=== PATIENT | female | born 1970 | race Caucasian/White ===

== ENCOUNTER 2016-09-15 12:26 | Emergency (ER) | payer OTHER ==
[~2016-09-15] VITALS: Wt 77.0 kg
[~2016-09-15 12:26] MED LIST: ACET500T98 PO; AUG875 PO; CETI10CA PO; DICY10CA60 PO; IBUP200C PO; OFLO5DRO46 LEFT EYE; ONDA4TAB14 PO; UDROBDM PO
[2016-09-15 14:21] LABS: URINE BLOOD (Dip) POC 3+ (NEGATIVE)
--- NOTE | 2016-09-15 15:37 | RADRPT ---
PROCEDURE: Pelvic ultrasound. CLINICAL INDICATION: Pelvic pain, vaginal bleeding. TECHNIQUE: Fried scale, color doppler, spectral doppler ultrasound of the pelvis was performed with transabdominal and transvaginal transducers. COMPARISON: No prior studies are available for comparison. FINDINGS: Uterus: Position: Mildly retroflexed Normal myometrial echogenicity. Normal appearance of the endometrium. Small Nabothian cysts are present. Secretory phase. Ovaries: Normal sized ovaries with preserved blood flow. No adnexal masses. 3.8 cm dominant follicle of the left ovary. Free fluid: None. Measurements: Endometrium: 1.4 cm Uterus: 9.4 x 4.3 x 4.8 cm Right ovary: 2.4 x 1.3 x 1.5 cm Left ovary: 4.5 x 3.4 x 3.9 cm IMPRESSION: Endometrial thickness upper limits of normal compatible with late secretory phase. Dominant follicle of the left ovary. Otherwise normal examination. RPTAT: PP .Dinh Watson MD, Date Time Electronically viewed and signed by .Dinh Watson MD, on 09/15/2016 15:36 .B/
--- NOTE | 2016-09-15 15:40 | ERD ---
ER Documentation Chief Complaint Date/Time DATE: 09/15/16 TIME: 15:40 Chief Complaint VAG BLEEDING ONSET 9 DAYS AGO WITH REGULAR PERIOD BUT HASNT STOPPED ROS All systems reviewed and are negative except as per history of present illness. Medications Home Meds Active Scripts Dicyclomine Hcl* (Bentyl*) 10 Mg Capsule, 10 MG PO QID, #20 CAP Prov:EDY HAMILTON PA-C 05/13/16 Ondansetron (Ondansetron Odt) 4 Mg Tab.rapdis, 4 MG PO Q6H Y for NAUSEA AND/OR VOMITING, #10 TAB Prov:EDY HAMILTON PA-C 05/13/16 Ofloxacin* (Ocuflox*) 0.3%-5 Ml Ophth Drops, 1 DROP LEFT EYE QID for 7 Days, BOTTLE Prov:SUKH BECKFORD MD 04/27/16 Cetirizine Hcl* (Zyrtec*) 10 Mg Capsule, 10 MG PO DAILY, #15 TAB.CHEW Prov:SUKH BECKFORD MD 04/27/16 Guaifenesin-Dextromethorphan* (Robitussin* DM) 100MG/10MG/5ML Syrup, 5 ML PO Q6H Y for COUGH, #240 ML 0 Refills Prov:CARO INFANTE PA-C 09/28/15 Ibuprofen* (Ibuprofen*) 200 Mg Capsule, 200 MG PO Q6, #30 CAP 0 Refills Prov:CARO INFANTE PA-C 09/28/15 Acetaminophen (Tylenol) 500 Mg Tab, 500 MG PO Q6, #30 TAB 0 Refills Prov:CARO INFANTE PA-C 09/28/15 Amoxicillin-Clavulanate K* (Augmentin*) 875 Mg Tab, 875 MG PO BID, #20 TAB 0 Refills Prov:CARO INFANTE PA-C 09/28/15 Allergies Allergies: Coded Allergies: No Known Allergy (Verified , 08/08/14) PMhx/Soc History of Surgery: No Anesthesia Reaction: No Hx Neurological Disorder: No Hx Respiratory Disorders: No Hx Cardiac Disorders: No Hx Psychiatric Problems: No Hx Miscellaneous Medical Probl: No Hx Alcohol Use: No Hx Substance Use: No Hx Tobacco Use: No Physical Exam Vitals Vital Signs Date Time Temp Pulse Resp B/P Pulse Ox O2 Delivery O2 Flow Rate FiO2 09/15/16 12:32 98.1 82 20 135/81 98 Physical Exam GENERAL: well-developed/well-nourished, in no apparent distress, non-toxic appearing HENT: NC/AT, moist mucous membranes EYES: Conjunctiva normal NECK: Supple, no lymphadenopathy PULM: CTA bilaterally, no rales, rhonchi, or wheezing heard CV: Normal S1S2, RRR, good capillary refill GI: Soft, non-distended, non-tender to palpation Normal bowel sounds, no masses or organomegaly felt on exam No gross peritonitis, no bruits Negative Rovsing, negative [place], negative [place]'s point, Negative CVAT BACK: No masses EXT: No clubbing, cyanosis, or edema NEURO: Alert and Orientated SKIN: Intact, normal turgor PSYCH: Normal mood and mentation Result Diagram: 09/15/16 1550 Results 24 hrs Laboratory Tests Test 09/15/16 14:21 09/15/16 15:50 Bedside Urine Blood 3+ Bedside Urine Glucose (UA) Negative Bedside Urine Ketones (LAB) Negative Bedside Urine Leukocyte Esterase (L Negative Bedside Urine Nitrite (LAB) Negative Bedside Urine Protein (LAB) Negative Bedside Urine pH (LAB) 7.5 Basophils # 0.110^3/ul Basophils % 0.8% Blood Morphology Comment Eosinophils # 0.210^3/ul Eosinophils % 2.8% Hematocrit 38.4% Hemoglobin 12.3g/dl Lymphocytes # 2.510^3/ul Lymphocytes % 30.0% Mean Corpuscular Hemoglobin 26.8pg Mean Corpuscular Hemoglobin Concent 32.1g/dl Mean Corpuscular Volume 83.5fl Mean Platelet Volume 10.5fl Monocytes # 0.610^3/ul Monocytes % 7.0% Neutrophils # 5.010^3/ul Neutrophils % 59.4% Nucleated Red Blood Cells # 0.010^3/ul Nucleated Red Blood Cells % 0.0/100WBC Platelet Count 10607^3/UL Red Blood Count 4.6010^6/ul Red Cell Distribution Width 15.7% White Blood Count 8.510^3/ul PROCEDURE: Pelvic ultrasound. CLINICAL INDICATION: Pelvic pain, vaginal bleeding. TECHNIQUE: Fried scale, color doppler, spectral doppler ultrasound of the pelvis was performed with transabdominal and transvaginal transducers. COMPARISON: No prior studies are available for comparison. FINDINGS: Uterus: Position: Mildly retroflexed Normal myometrial echogenicity. Normal appearance of the endometrium. Small Nabothian cysts are present. Secretory phase. Ovaries: Normal sized ovaries with preserved blood flow. No adnexal masses. 3.8 cm dominant follicle of the left ovary. Free fluid: None. Measurements: Endometrium: 1.4 cm Uterus: 9.4 x 4.3 x 4.8 cm Right ovary: 2.4 x 1.3 x 1.5 cm Left ovary: 4.5 x 3.4 x 3.9 cm IMPRESSION: Endometrial thickness upper limits of normal compatible with late secretory phase. Dominant follicle of the left ovary. Otherwise normal examination. RPTAT: PP .Dinh Watson MD, MD Date Time Electronically viewed and signed by .Dinh Watson MD, MD on 09/15/2016 15:36 .B/ CC: DEEPALI KIM PA-C Procedures/MDM This is a 46-year-old female presenting to the emergency department complaining of heavy vaginal bleeding for the past 11 days, menorrhagia. I have a low suspicion for anemia or fibroids. Patient had no pelvic pain. Lab work was drawn. CBC did not show any evidence of leukocytosis or anemia. Urinalysis did not show any evidence of urinary tract infection. A pelvic ultrasound was done in the ED and radiologist stated- Pelvic ultrasound: Endometrial thickness upper limits of normal compatible with late secretory phase. Dominant follicle of the left ovary. Otherwise normal examination. Patient is suitable to follow-up with an [employer] for further evaluation management. Patient is stable for discharge. Discussed return to the ER for any worsening signs or symptoms. She understands and agrees with plan Departure Diagnosis: Primary Impression: Vaginal bleeding Condition: Stable DEEPALI KIM PA-C Sep 15, 2016 15:40
[2016-09-15 16:32] LABS: BASOPHIL # 0.1 10^3/ul (0.0-0.1); BASOPHILS % 0.8 % (0.0-2.0); EOSINOPHILS # 0.2 10^3/ul (0.0-0.5); EOSINOPHILS % 2.8 % (0.0-7.0); HEMATOCRIT 38.4 % (37.0-47.0); HEMOGLOBIN 12.3 g/dl (12.0-16.0); LYMPHOCYTES # 2.5 10^3/ul (0.8-2.9); MEAN CORPUSCULAR HEMOGLOBIN 26.8 pg (29.0-33.0); MEAN CORPUSCULAR HGB CONC 32.1 g/dl (32.0-37.0); MEAN CORPUSCULAR VOLUME 83.5 fl (82.0-101.0); MEAN PLATELET VOLUME 10.5 fl (7.4-10.4); MONOCYTE # 0.6 10^3/ul (0.3-0.9); NEUTROPHILS % 59.4 % (39.0-77.0); PLATELET COUNT 212 10^3/UL (140-440); RED CELL DISTRIBUTION WIDTH 15.7 % (11.5-14.5); UNCORRECTED WBC 8.5 10^3/ul (4.8-10.8); WHITE BLOOD COUNT 8.5 10^3/ul (4.8-10.8)
[2016-09-15 16:35] LABS: CONDITION 1; LH ANALYZER COMMENTS 1
== END 2016-09-15 17:10 | disposition home or self-care (01) ==
LOC: FTE 12:26
DX: N93.9 Abnormal uterine and vaginal bleeding, unspecified (principal); R10.2 Pelvic and perineal pain
CPT/HCPCS: 76830; 76856; 81003; 85025; 86850; 86900; 86901

== ENCOUNTER 2017-01-27 21:32 | Emergency (ER) | payer MEDICAID, OTHER ==
[~2017-01-27] VITALS: Ht 162.6 cm; Wt 88.0 kg
[2017-01-27 21:39] VITALS: Ht 162.6 cm; Wt 88.0 kg
[2017-01-28] MEDS ORDERED: IBUPROFEN 600 MG TAB PO ONE
--- NOTE | 2017-01-28 00:06 | ERA ---
ER Documentation Chief Complaint Date/Time DATE: 01/28/17 TIME: 00:05 Chief Complaint sore throat/cough/congestion x 4 days HPI This is a pleasant overweight 47-year-old female who is presenting with a chief complaint of sore throat. Symptoms started 1 day ago. Describes the discomfort as worse when she swallows. The patient denies difficulty breathing , chest pain, dysphagia, change in voice, drooling, fatigue, oral swelling, ear pain or meningismus. Patients vaccination status is up to date patient denies any medical conditions including asthma, diabetes mellitus, or COPD. Patient denies smoking or recreational drug abuse. Patient has not had symptoms like this before. ROS All systems reviewed and are negative except as per history of present illness. Medications Home Meds Active Scripts Methylprednisolone* (Medrol* DOSE PACK) 4 Mg/Dose-Pack Tab.ds.pk, 4 MG PO . DIRECTED, #1 PACKET Prov:YAO GARCIA PA-C 01/28/17 Acetaminophen* (Tylenol*) 325 Mg Tablet, 325 MG PO Q4H Y for PAIN AND OR ELEVATED TEMP for 10 Days, TAB Prov:YAO GARCIA PA-C 01/28/17 Amoxicillin* (Amoxicillin*) 500 Mg Cap, 500 MG PO BID, #20 CAP Prov:YAO GARCIA PA-C 01/28/17 Ibuprofen* (Motrin*) 600 Mg Tab, 600 MG PO Q6, #30 TAB Prov:YAO GARCIA PA-C 01/28/17 Dicyclomine Hcl* (Bentyl*) 10 Mg Capsule, 10 MG PO QID, #20 CAP Prov:EDY HAMILTON PA-C 05/13/16 Ondansetron (Ondansetron Odt) 4 Mg Tab.rapdis, 4 MG PO Q6H Y for NAUSEA AND/OR VOMITING, #10 TAB Prov:EDY HAMILTON PA-C 05/13/16 Ofloxacin* (Ocuflox*) 0.3%-5 Ml Ophth Drops, 1 DROP LEFT EYE QID for 7 Days, BOTTLE Prov:SUKH BECKFORD MD 04/27/16 Cetirizine Hcl* (Zyrtec*) 10 Mg Capsule, 10 MG PO DAILY, #15 TAB.CHEW Prov:SUKH BECKFORD MD 04/27/16 Guaifenesin-Dextromethorphan* (Robitussin* DM) 100MG/10MG/5ML Syrup, 5 ML PO Q6H Y for COUGH, #240 ML 0 Refills Prov:CARO INFANTE MELISSA 09/28/15 Ibuprofen* (Ibuprofen*) 200 Mg Capsule, 200 MG PO Q6, #30 CAP 0 Refills Prov:NEIL INFANTETRISHA TORRES 09/28/15 Acetaminophen (Tylenol) 500 Mg Tab, 500 MG PO Q6, #30 TAB 0 Refills Prov:ARELISCARO TORRES 09/28/15 Amoxicillin-Clavulanate K* (Augmentin*) 875 Mg Tab, 875 MG PO BID, #20 TAB 0 Refills Prov:CARO INFANTE MELISSA 09/28/15 Allergies Allergies: Coded Allergies: No Known Allergy (Verified , 01/27/17) PMhx/Soc Medical and Surgical Hx: pt denies Medical Hx, pt denies Surgical Hx History of Surgery: No Anesthesia Reaction: No Hx Neurological Disorder: No Hx Respiratory Disorders: No Hx Cardiac Disorders: No Hx Psychiatric Problems: No Hx Miscellaneous Medical Probl: No Hx Alcohol Use: No Hx Substance Use: No Hx Tobacco Use: No Physical Exam Vitals Vital Signs Date Time Temp Pulse Resp B/P Pulse Ox O2 Delivery O2 Flow Rate FiO2 01/27/17 21:39 99.4 77 20 132/61 98 Physical Exam Const: Well-appearing 47-year-old female in no acute distress Head: Atraumatic Eyes: Normal Conjunctiva ENT: Normal External Ears, Nose and Mouth. Neck: Full range of motion..~ No meningismus. Resp: Clear to auscultation bilaterally Cardio: Regular rate and rhythm, no murmurs Abd: Soft, non tender, non distended. Normal bowel sounds Skin: No petechiae or rashes Back: No midline or flank tenderness Ext: No cyanosis, or edema Neur: Awake and alert Psych: Normal Mood and Affect Const: Healthy-appearing, well-nourished, well-developed, no acute distress. Head: Normocephalic, Atraumatic Eyes: Non-injected; No scleral erythema, discharge or foreign body. EOMI bilaterally. PERRLA. Ears: Normal External Ears, EACs clear, TM normal bilaterally without erythema. Nose: Normal nose without discharge, septal deviation, or sinus tenderness. Throat: Enlarged tonsils bilaterally. No exudates visualized. Moist mucous membranes. Neck: Good air movement. Full range of motion. Supple. Trachea midline. No posterior cervical lymphadenopathy. ~ No meningismus. Pulm: No dyspnea, stridor, tripoding or drooling. Good air movement. Clear to auscultation bilaterally. Cardio: Regular rate and rhythm; No murmurs, gallops or rubs auscultated. No JVD grossly observed. Capillary refill less than 2 seconds. Abd: Soft, non tender, non distended. No guarding, masses. Normal bowel sounds. No CVA tenderness. MS: Normal motor strength, normal tone. Skin: No petechiae or rashes. No ulcer, induration, jaundice. Good turgor. Back: No midline or flank tenderness Ext: No cyanosis, edema or palpable cord. Normal movement of all extremities grossly observed. Radial and posterior tibial pulses 2+ bilaterally. Neur: Awake and alert Psych: Active and alert. Normal Mood and Affect. Oriented x3. Results 24 hrs Current Medications Medications (Trade) Dose Ordered Sig/Tanya Route PRN Reason Start Time Stop Time Status Last Admin Dose Admin Ibuprofen (Motrin) 600 mg ONCE ONCE PO 01/28/17 00:00 01/28/17 00:01 DC 01/28/17 01:05 Procedures/MDM Patient was evaluated and worked up for pharyngitis. Patient was given Decadron in the ED due to enlarged tonsils bilaterally. Patient had no complaints of difficulty breathing or shortness of breath but due to these as the tonsils went ahead and gave Decadron to prevent any potential airway obstruction. After administration of Decadron the tonsils had decreased significantly and the pulmonary exam remained unremarkable. The patient has a [place] Criteria of 1 the current most likely diagnosis is acute tonsillitis with presumed bacterial involvement. The treatment plan will thus include out-patient antibiotics and supportive measures. Supportive measures will include Medrol Dosepak and acetaminophen. At this time I do not suspect diphtheria, Emeka-Borges virus, peritonsillar abscess, epiglottitis, retropharyngeal abscess, parapharyngeal abscess, allergic reaction, or endangerment of the airway. I presented the case to my attending Dr. Howell who has agreed with the assessment and plan. I have spoke with the patient regarding their condition and future management. They have verbally responded that they understand their status and treatment plan. The patients vitals are stable, and their current condition is appropriate for discharge. The patient will be given discharge instructions with return precautions. Departure Diagnosis: Primary Impression: Acute bacterial tonsillitis Additional Impression: Sore throat Condition: Stable Additional Instructions: Follow up with your PCP within the next 1-3 days for a more thorough evaluation and a possible referral to a specialist. Return the the emergency department immediately if symptoms worsen or change. If you have any questions regarding medications, ask your pharmacist or us before you leave. If any adverse reactions occur while taking your medications, discontinue the treatment and return to the emergency department immediately. Take your medications as directed, and complete the entire course of treatment. YAO GARCIA PA-C Jan 28, 2017 00:06
[2017-01-28] MEDS ORDERED: IBUP-1542 PO (01:24)
[2017-01-28] MEDS ORDERED: AMO500 PO (01:26)
[2017-01-28] MEDS ORDERED: MED4DP PO (01:28)
[2017-01-28] MEDS ORDERED: ACET325T33 PO (01:28)
[2017-01-28 02:02] VITALS: BP 132/71; PULSE 76; RESP 17; TEMP 97.6
== END 2017-01-28 02:03 | disposition home or self-care (01) ==
LOC: FTE 21:32
DX: J03.90 Acute tonsillitis, unspecified (principal)
CPT/HCPCS: Z7502; Z7610; 99284